=== PATIENT | female | born 1955 | race Caucasian/White ===

== ENCOUNTER → 2019-12-04 09:32 | Outpatient (BNVA) | payer BC, SELFPAY | PROVIDERS: Family Provider Nurse Practitioner Family; PCP Nurse Practitioner Family; Visit Provider Nurse Practitioner Family | DX: Z00.00 Encounter for general adult medical examination without abnormal findings (principal); E83.42 Hypomagnesemia; Z13.29 Encounter for screening for other suspected endocrine disorder; Z13.6 Encounter for screening for cardiovascular disorders | CPT/HCPCS: 80053; 80061; 83735; 84439; 84443 ==

== ENCOUNTER → 2020-01-07 09:32 | Outpatient (BNVA) | payer BC, SELFPAY | PROVIDERS: Family Provider Nurse Practitioner Family; PCP Nurse Practitioner Family; Visit Provider Nurse Practitioner Family | DX: R73.01 Impaired fasting glucose (principal); R30.0 Dysuria; R82.90 Unspecified abnormal findings in urine; R73.09 Other abnormal glucose | CPT/HCPCS: 36416; 81003; 82962; 83036; 87077; 87086; 87186 ==

== ENCOUNTER → 2020-04-07 08:51 | Outpatient (BNVA) | payer BC, SELFPAY | PROVIDERS: Family Provider Nurse Practitioner Family; PCP Nurse Practitioner Family; Visit Provider Nurse Practitioner Family | DX: R73.09 Other abnormal glucose (principal); E78.1 Pure hyperglyceridemia | CPT/HCPCS: 83036 ==

== ENCOUNTER → 2020-07-08 09:08 | Outpatient (BNVA) | payer BC, SELFPAY | PROVIDERS: Family Provider Nurse Practitioner Family; PCP Nurse Practitioner Family; Visit Provider Nurse Practitioner Family | DX: E78.1 Pure hyperglyceridemia (principal); Z68.42 Body mass index [BMI] 45.0-49.9, adult; L91.8 Other hypertrophic disorders of the skin; B37.2 Candidiasis of skin and nail | CPT/HCPCS: 80061 ==

== ENCOUNTER → 2020-11-17 09:14 | Outpatient (BNVA) | payer MEDICARE, SELFPAY | PROVIDERS: Family Provider Nurse Practitioner Family; PCP Nurse Practitioner Family; Visit Provider Family Medicine | DX: R05 Cough (principal); K21.00 Gastro-esophageal reflux disease with esophagitis, without bleeding | CPT/HCPCS: 85025 ==

== ENCOUNTER → 2021-04-20 00:01 | Outpatient (BNVA) | payer MEDICARE, SELFPAY | PROVIDERS: Family Provider Nurse Practitioner Family; PCP Nurse Practitioner Family; Visit Provider Nurse Practitioner Family | DX: R30.0 Dysuria (principal); R82.90 Unspecified abnormal findings in urine | CPT/HCPCS: 81003; 87077; 87086; 87184 ==

== ENCOUNTER → 2021-09-08 07:56 | Outpatient (BNVA) | payer MEDICARE, SELFPAY | PROVIDERS: Family Provider Nurse Practitioner Family; PCP Nurse Practitioner Family; Visit Provider Nurse Practitioner Family | DX: E78.1 Pure hyperglyceridemia (principal); E55.9 Vitamin D deficiency, unspecified | CPT/HCPCS: 80053; 80061; 82306; 83735; 84439; 84443; 85025 ==

== ENCOUNTER 2021-12-10 14:39 | Emergency (ER) | payer MEDICARE, SELFPAY ==
[2021-12-10 14:51] VITALS: BP 175/121; PULSE 102; RESP 18; TEMP 36.4; O2SAT 95
--- NOTE | 2021-12-10 15:01 | XRR_ITS ---
PROCEDURE INFORMATION: Exam: XR Chest Exam date and time: 12/10/2021 3:01 PM Age: 66 years old Clinical indication: Angina pectoris; Prior surgery; Patient HX: Double mastectomy, HX of breast cancer, chest pain and neck pain starting last night TECHNIQUE: Imaging protocol: XR of the chest. Views: 1 view. COMPARISON: No relevant prior studies available. FINDINGS: Lungs: Unremarkable. No consolidation. Pleural spaces: Unremarkable. No pleural effusion. No pneumothorax. Heart/Mediastinum: Unremarkable. No cardiomegaly. Bones/joints: Unremarkable. XR/XR chest 1V portable [id number] IMPRESSION: No acute findings.
[2021-12-10 16:02] VITALS: BP 148/96; PULSE 100; RESP 19; O2SAT 97
--- NOTE | 2021-12-10 16:03 | PC.NURSE ---
PATIENT PLACED ON CONTINUOUS BEDSIDE CARDIAC, O2 AND BP MONITOR
[2021-12-10 16:33] LABS: Basophils % 0.5 %; Eosinophils # 0.1 10^3/uL (0.0-0.8); Eosinophils % 1.3 %; Hematocrit 45.6 % (37.0-47.0); Hemoglobin 15.2 g/dL (11.5-15.3); Lymphocytes # 2.7 10^3/uL (0.8-4.8); Lymphocytes % 44.5 %; Mean Corpuscular HGB Conc 33.3 g/dL (30.0-36.0); Mean Corpuscular Volume 93.1 fl (81-99); Mean Platelet Volume 11.4 fL (7.4-10.4); Monocytes # 0.5 10^3/uL (0.2-0.9); Monocytes % 7.9 %; Neutrophils # 2.73 10^3/uL (1.8-7.7); Neutrophils % 45.3 %; Nucleated Red Blood Cells % 0 %; Platelet Count 208 10^3/cmm (130-400); Red Cell Distribution Width 11.8 % (12.1-15.1)
[2021-12-10 16:53] LABS: Troponin(5th) Baseline 8 ng/L (0-10)
[2021-12-10 16:54] LABS: Anion Gap 19.1 (5-19); Blood Urea Nitrogen 19 mg/dL (8-23); Calcium 9.7 mg/dL (8.5-10.5); Carbon Dioxide 24 mmol/L (22-29); Chloride 98 mmol/L (98-107); Glucose 123 mg/dL (65-115); Osmolality Calculated 288 mOsm/kg (285-295); Potassium 4.1 mmol/L (3.5-5.1); Sodium 137 mmol/L (136-145)
--- NOTE | 2021-12-10 17:01 | ECG_ITS ---
[facility] Test Date: 2021-12-10 Pat Name: Radha Sheldon Department: Room: Gender: Female Principal Research Economist: : 1955 Requested By: Khurram Nguyen Order Number: [id number] Reading MD: JULIA HODGES Measurements Intervals Triangle Rate: 95 P: 48 OK: 168 QRS: 24 QRSD: 98 T: 50 QT: 356 QTc: 449 Interpretive Statements SINUS RHYTHM POSSIBLE LEFT ATRIAL ENLARGEMENT [-0.1mV P-WAVE IN V1/V2] No previous ECG available for comparison Electronically Signed On 12-11-2021 17:47:08 COAL DIGGER by JULIA HODGES [id number]
[2021-12-10 17:05] VITALS: BP 154/81; PULSE 95; RESP 18; O2SAT 97
[2021-12-10 17:33] VITALS: BP 146/82; PULSE 97; RESP 24; O2SAT 97
--- NOTE | 2021-12-10 17:33 | W.ED.GENADLT ---
HPI - General Adult General: Chief complaint: Chest Pain Stated complaint: CHEST PREASURE Time Seen by Provider: 12/10/21 15:46 History of Present Illness: CC: Chest Pain HPI: This is a [66] yo patient hx of breast cancer s/p b/l mastectomy, knee replacement to the ED complaining of one episode of achy and burning chest pain lasting for a 15-20 minutes at home while patient was resting around 10pm. No additoinal episode. No associated with shortness of breath, chest pain or dyspnea on exertion. Pain not associated with vomiting or PO intake. Denies any recent sympathomimetic drug use. Patient denies any cough. Denies palpitations, dysphagia, diaphoresis, radiation of pain to bilateral arms, jaw. Denies F/N/V/D. Patient denies any recent immobility, surgery, unilateral leg swelling, or prior PE. Patient denies any orthopnea. Onset: 1 days ago Duration: ongoing for the last 1 day Location: home Severity: mild/moderate Associated symptoms: Reports chest pain; Deny dyspnea, nausea, rash, palpitations or vomiting Review of Systems Const: Denies: fever(s) or chills Eyes: Denies: change in vision ENMT: Denies: mouth pain Card: Reports: chest pain; Denies: palpitations Resp: Denies: dyspnea or non-productive cough GI: Denies: abdominal pain, nausea, vomiting or diarrhea : Denies: dysuria Musc: Denies: extremity pain Skin/Breast: Denies: rash or new lesions Neuro: Denies: weakness in extremities Psych: Reports: other (Normal mood) Angelo/Lymph: Denies: easy bruising PFS ED PFSH: Medical History History of breast cancer Surgical History History of bilateral mastectomy History of total knee replacement BOTH Social History Smoking and tobacco status: never smoked Alcohol intake: never Physical Exam Const: COMMON NORMALS: alert HENMT: COMMON NORMALS: atraumatic HEAD & SCALP: atraumatic MOUTH: moist mucous membranes not abnormal Eye: COMMON NORMALS: EOMs intact bilaterally and conjunctivae normal CONJUNCTIVA: Yes conjunctivae normal Neck/C-Spine: COMMON NORMALS: full ROM and supple Resp: COMMON NORMALS: normal respiratory effort and clear to auscultation bilaterally AUSCULTATION: clear to auscultation bilaterally Cardio: COMMON NORMALS: regular rate RATE: regular rate GI: COMMON NORMALS: Soft to palpation and non-tender PALPATION: Yes Soft to palpation Extremity: COMMON NORMALS: full ROM Neuro: SENSORIUM/ORIENTATION: Yes alert MOTOR EXAM: No Abnormal motor strength present and Other motor observations present (no focal motor deficits) Psych: COMMON NORMALS: speech normal SPEECH: Yes normal speech MOOD & AFFECT: Yes euthymic mood Course Vital Signs: Vital signs: Vital Signs Temperature 97.5 F L 12/10/21 14:51 Pulse Rate 87 12/10/21 18:26 Respiratory Rate 22 H 12/10/21 18:26 Blood Pressure 130/72 12/10/21 18:26 Pulse Oximetry 96 12/10/21 18:26 MDM - General Adult Medical Decision Making [66]yo patient w/ hx of prior breast cancer presenting to the ED with evaluation of one episode of chest pain at 10pm yesterday night. HDS, pulse 2+ radially bilaterally, no signs of fluid overload, AAOx3, neuro exam intact. Given History and Exam today I have no suspicion for ACS, Pneumothorax, Pneumonia, Pulmonary Embolus, Tamponade, Aortic Dissection or other emergent problems as a cause for this presentation. Workup: ECG x 2 , CXR, CBC, BMP, Troponinx 2, dimer Interventions: Aspirin Findings: ECG: No overt evidence of STEMI, hyperacute T waves, localizable STD or T wave inversions. No evidence of Brugada?s sign, delta wave, epsilon wave, significantly prolonged QTc, or malignant arrhythmia. No Q waves. Other Labs unremarkable for emergent problems. CXR: Without PTX, PNA, or widened mediastinum Last Stress Test: never Last Heart Catheterization: never Dimer wnl HEART Score of 3 (age - 2, EKG - non specific EKG changes) [7:35] On reassessment, the patient is HDS, no complaints of persistent chest pain in the ED after evaluation. ECG is non-ischemic. Troponin x 2 wnl. Workup today is unremarkable. Doubt ACS/PE or other emergent causes of chest pain since HEART score of 2. Troponin x 2 wnl. No suspicion for aortic dissection given no widened mediastinum, 2+ upper extremity pulses, or tearing pain. No suspicion for PE given no pleuritic chest pain, recent immobilization or surgery hemoptysis, or other VTE risk factors. EKG is non-ischemic. XR normal. I performed shared decision-making with patient regarding admission versus discharge today, and patient prefers to be discharged. I have discussed given patient's risk factors that she would better off admitted to the hospital. However, we do not do stress test on the weekend and she would have to wait until Monday. Upon hearing this, patient elects to go home and do the stress test on Monday and Monday. I explained the risks of leaving the hospital today including lethal arrythemia, NM, and even . Patient verbalizes understanding of these discussed risk and elect for the alternative of following up earlier next week for stress test on Monday or Monday and to see a communications department chairperson in clinic. Patient verbalizes understanding to return for any worsening symptoms including chest pain, dyspnea, fatigue, arm pain/jaw pain/back pain or any new or concerning issues. I have given patient follow up with our skilled nursing case manager to be seen by our outpatient Cardiology should patient have persistent symptom of chest pain. Patient aware of a call from our skilled nursing case manager to schedule for appointment(s) and verbalizes understanding of the importance of following up. Disposition: Discharge. Strict return precautions discussed with the patient with full understanding. Advised patient to follow up promptly with a communications department chairperson next week if the patient has persistent symptoms. Given return instructions for any crushing/tearing chest pain, focal weakness, syncope or any new or concerning issues. Lab Data : 12/10/21 16:05 12/10/21 16:05 Radiology Impressions Chest X-Ray 12/10/21 15:01 IMPRESSION: No acute findings. Laboratory Results WBC 6.0 10^3/uL (4.0-10.0) 12/10/21 16:05 RBC 4.90 10^6/uL (4.1-5.3) 12/10/21 16:05 Hgb 15.2 g/dL (11.5-15.3) 12/10/21 16:05 Hct 45.6 % (37.0-47.0) 12/10/21 16:05 MCV 93.1 fl (81-99) 12/10/21 16:05 MCH 31.0 pg (28.0-34.0) 12/10/21 16:05 MCHC 33.3 g/dL (30.0-36.0) 12/10/21 16:05 RDW 11.8 % (12.1-15.1) L 12/10/21 16:05 Plt Count 208 10^3/cmm (130-400) 12/10/21 16:05 MPV 11.4 fL (7.4-10.4) H 12/10/21 16:05 Neut % (Auto) 45.3 % 12/10/21 16:05 Lymph % (Auto) 44.5 % 12/10/21 16:05 Camp % (Auto) 7.9 % 12/10/21 16:05 Eos % (Auto) 1.3 % 12/10/21 16:05 Baso % (Auto) 0.5 % 12/10/21 16:05 Neut # (Auto) 2.73 10^3/uL (1.8-7.7) 12/10/21 16:05 Lymph # (Auto) 2.7 10^3/uL (0.8-4.8) 12/10/21 16:05 Camp # (Auto) 0.5 10^3/uL (0.2-0.9) 12/10/21 16:05 Eos # (Auto) 0.1 10^3/uL (0.0-0.8) 12/10/21 16:05 Baso # (Auto) 0.0 10^3/uL (0.0-0.1) 12/10/21 16:05 Nucleated RBC % (auto) 0 % 12/10/21 16:05 Nucleated RBCs # 0.0 /100WBC 12/10/21 16:05 D-Dimer 0.47 ug/mIFEU (0-0.59) 12/10/21 16:05 Sodium 137 mmol/L (136-145) 12/10/21 16:05 Potassium 4.1 mmol/L (3.5-5.1) 12/10/21 16:05 Chloride 98 mmol/L (98-107) 12/10/21 16:05 Carbon Dioxide 24 mmol/L (22-29) 12/10/21 16:05 Anion Gap 19.1 (5-19) H 12/10/21 16:05 BUN 19 mg/dL (8-23) 12/10/21 16:05 Creatinine 0.6 mg/dL (0.5-0.9) 12/10/21 16:05 GFR Calculation 100.0 mL/min (90-130) 12/10/21 16:05 Glucose 123 mg/dL (65-115) H 12/10/21 16:05 Calculated Osmolality 288 mOsm/kg (285-295) 12/10/21 16:05 Calcium 9.7 mg/dL (8.5-10.5) 12/10/21 16:05 Troponin T Baseline 8 ng/L (0-10) 12/10/21 16:05 Troponin T 120 Minute 6.41 ng/L (0-10) 12/10/21 18:28 Imaging Data Other Imaging: Radiologist's impression: [place] [address] XRay Report Signed Patient: Radha Sheldon Unit #: [id number] : 1955 Age/Sex: 66 / F ADM Date: 12/10/21 Loc: ER Room/Bed: Attending Dr: Ordering Provider/Ordering MD: Khurram Nguyen MD Date of Service: 12/10/21 Procedure(s): XR chest 1V portable [id number] Accession Number(s): [id number] Report Number: [id number] PROCEDURE INFORMATION: Exam: XR Chest Exam date and time: 12/10/2021 3:01 PM Age: 66 years old Clinical indication: Angina pectoris; Prior surgery; Patient HX: Double mastectomy, HX of breast cancer, chest pain and neck pain starting last night TECHNIQUE: Imaging protocol: XR of the chest. Views: 1 view. COMPARISON: No relevant prior studies available. FINDINGS: Lungs: Unremarkable. No consolidation. Pleural spaces: Unremarkable. No pleural effusion. No pneumothorax. Heart/Mediastinum: Unremarkable. No cardiomegaly. Bones/joints: Unremarkable. XR/XR chest 1V portable [id number] IMPRESSION: No acute findings. ? Dictated By: Francisco Javier Velazquez Signed By: Francisco Javier Velazquez Signed Date/Time: 12/10/21 1543 DD/ 1501 Discharge Plan Discharge Patient Disposition: Home Clinical Impression: Chest pain Condition: Stable Prescriptions: New acetaminophen 500 mg tablet 500 mg PO Q6H PRN (Reason: pain) 5 Days Qty: 20 0RF No Action cholecalciferol (vitamin D3) 2,000 unit tablet 2,000 unit PO QDAY 0RF magnesium oxide 500 mg capsule 500 mg PO QDAY 0RF ketotifen fumarate [Zaditor] 0.025 % (0.035 %) drops 1 drp ophthalmic (eye) Q12H Qty: 5 3RF coenzyme Q10 PO 0RF cetirizine [Zyrtec] 10 mg tablet 10 mg PO DAILY Qty: 30 11RF Discharge Orders: Discharge ED (Routine); Ordered 12/10/21 Ordered By: Khurram Nguyen Referrals: Tiki Sarabia, REVENUE STAMP CLERK [Primary Care Provider] - Discharge Diet: Advance as tolerated Discharge Activity: Increase activity as tolerated Patient Instructions: Chest Pain (ED) Activity Restrictions/Additional Instructions: Come back to the emergency room if your chest pain worsens, have any fever or chills, worsening shortness of breath, worsening exertional lightheadedness, or any new or concerning complaints. Coding Level of Care Code ED Industrial Engineering Technician for [place] Fwque Exam Comprehensive
[2021-12-10 18:26] VITALS: BP 130/72; PULSE 87; RESP 22; O2SAT 96
[2021-12-10 18:26] LABS: D Dimer 0.47 ug/mIFEU (0-0.59)
[2021-12-10 19:29] LABS: Troponin 5 2HR 6.41 ng/L (0-10)
[2021-12-10 19:45] VITALS: BP 128/68; PULSE 87; RESP 18; O2SAT 96
[2021-12-10 19:49] LABS: Troponin 5 2HR Delta -1.59 ABS# (0-10)
--- NOTE | 2021-12-13 12:54 | DCPLANNER ---
Addendum entered by Shelby Dean 01/07/22 10:50: Patient had a follow up appointment scheduled for 12.29.21 with [facility] - patient did attend appointment. Original Note: quality control manager had message to schedule a follow up appointment for patient with [facility]. quality control manager called [facility], spoke with Gabriela, gave clinic patients information. A follow up appointment was scheduled for Wednesday, December 29, 2021 at 10:[address] Desai. quality control manager called patient and gave patient the appointment information.
== END 2021-12-10 19:47 | disposition home or self-care (01) ==
PROVIDERS: Emergency Provider Emergency Medicine; PCP Nurse Practitioner Family
DX: R07.9 Chest pain, unspecified (principal); Z85.3 Personal history of malignant neoplasm of breast
CPT/HCPCS: 71045; 80048; 84484; 85025; 85378; 93005; 99284

== ENCOUNTER → 2022-05-12 10:03 | Outpatient (BNVA) | payer MEDICARE, SELFPAY | PROVIDERS: PCP Nurse Practitioner Family; Visit Provider Family Medicine | DX: M16.11 Unilateral primary osteoarthritis, right hip (principal); M25.551 Pain in right hip | CPT/HCPCS: 73502 ==

== ENCOUNTER → 2022-06-17 09:22 | Outpatient (BNVA) | payer MEDICARE, SELFPAY | PROVIDERS: PCP Nurse Practitioner Family; Visit Provider Nurse Practitioner Family | DX: R47.1 Dysarthria and anarthria (principal) | CPT/HCPCS: 81003 ==

== ENCOUNTER → 2022-08-24 08:41 | Outpatient (BNVA) | payer MEDICARE, SELFPAY | PROVIDERS: PCP Nurse Practitioner Family; Visit Provider Nurse Practitioner Family | DX: E78.1 Pure hyperglyceridemia (principal); E55.9 Vitamin D deficiency, unspecified; Z23 Encounter for immunization; Z00.00 Encounter for general adult medical examination without abnormal findings | CPT/HCPCS: 80053; 80061; 82306; 84443 ==

== ENCOUNTER → 2022-12-06 09:47 | Outpatient (BNVA) | payer MEDICARE, SELFPAY | PROVIDERS: PCP Nurse Practitioner Family; Visit Provider Nurse Practitioner Family | DX: Z12.4 Encounter for screening for malignant neoplasm of cervix (principal) | CPT/HCPCS: 88175 ==

== ENCOUNTER → 2023-02-28 10:23 | Outpatient (BNVA) | payer MEDICARE, SELFPAY | PROVIDERS: PCP Nurse Practitioner Family; Visit Provider Nurse Practitioner Family | DX: E78.1 Pure hyperglyceridemia (principal) | CPT/HCPCS: 80053; 80061 ==

== ENCOUNTER 2023-03-09 07:41 | Outpatient (CLI) | payer MEDICARE, SELFPAY ==
--- NOTE | 2023-03-09 08:00 | XR_ITS ---
WS: [id number] DEXA (DUAL ENERGY X-RAY ABSORPTIOMETRY) Bone mineral density was performed using a [employer] machine. HISTORY: Z78.0 - Asymptomatic menopausal state COMPARISON: None available. Lumbar spine BMD (L1-L4): 1.021 g/cm2 T score: -1.3 Z score: -0.9 Total hip BMD: Left: 1.216 g/cm2. T score: 1.7 Z score: 2.1 Right: 1.071 g/cm2. T score: 0.5 Z score: 1.0 10 year probability of a major osteoporotic fracture is 12.0%. XR/XR DEXA axial skeleton* 21293 IMPRESSION: OSTEOPENIA based upon the WHO classification for females.
== END 2023-03-09 07:42 | disposition home or self-care (01) ==
LOC: RAD 07:42
PROVIDERS: PCP Nurse Practitioner Family; Visit Provider Nurse Practitioner Family
DX: Z78.0 Asymptomatic menopausal state (principal); M85.80 Other specified disorders of bone density and structure, unspecified site
CPT/HCPCS: 77080

== ENCOUNTER → 2023-03-22 14:28 | Outpatient (BNVA) | payer MEDICARE, SELFPAY | PROVIDERS: PCP Nurse Practitioner Family; Visit Provider Surgery | DX: Z12.11 Encounter for screening for malignant neoplasm of colon (principal) | CPT/HCPCS: 99203 ==

== ENCOUNTER 2023-05-05 07:22 | Outpatient (CLI) | payer MEDICARE, SELFPAY ==
--- NOTE | 2023-05-05 07:30 | ECG_ITS ---
[facility] Test Date: 2023-05-05 Pat Name: Radha Sheldon Department: Room: Gender: Female Stone Trimmer: : 1955 Requested By: Tiki Sarabia Order Number: [id number] Juan Carlos MD: Kailyn Desai M.D. Interpretive Statements NAME OF STUDY: LEXISCAN SESTAMIBI STRESS TEST INDICATION: Pre op clearance PROCEDURE: At the baseline, the blood pressure was 146/84 mmHg with a heart rate of 83 bpm and oxygen saturation 96%. The electrocardiogram showed sinus rhythm, normal axis with normal ST and T's. The Lexiscan was infused over a period of 20 seconds. A total of 0.4 milligrams of Lexiscan was infused. The stress phase was continued for a total of 5 minutes. Heart rate at the end of the stress phase was 102 bpm, oxygen saturation 95% with a blood pressure 130/70 mmHg. The EKG at the peak infusion revealed sinus tachycardia with no significant ST-T wave changes. Sestamibi was injected 20 seconds after the Lexiscan infusion. Blood pressure at the end of the recovery phase was 125 over 69 mmHg with a heart rate of 98 beats per minute and saturation of 94%. CONCLUSION: 1. No significant EKG changes with the] LexiScan infusion. 2. No LexiScan induced chest pain or cardiac arrhythmia. 3. Normal blood pressure and heart rate response. 4. Sestamibi/sestamibi perfusion scan pending; see separate report. Attention: Preop clearance for hip Sx on May 10. Results need sent to [facility]. . Electronically Signed On 05-05-2023 13:58:36 CDT by Kailyn Desai M.D. [id number]
[2023-05-05 07:52] VITALS: BMI 39.4
--- NOTE | 2023-05-05 07:53 | NMCV_ITS ---
NM rebecca perf SPECT r/s* [id number] Radha Sheldon Age: 67 Gender: F : 1955 Exam Date: 05/05/2023 08:43 Ordering Phys: Tiki Sarabia NP Technologist: RAYMON Saucedo Exam Location: [facility] Indications: PRE OP CLEARANCE STRESS TEST [facility] IMAGE PROTOCOL Rest/Stress 1 Lexiscan Day Radiopharmaceutical Dose (mCi) Administration Site Administered by Rest: Tc-99m 10.6 IV RAYMON Saucedo Sestamibi Stress:Tc-99m 32.6 IV RAYMON Mantilla Sestamibi Rest: 05-May-2023 60 Discovery 630 Stress: 05-May-2023 30 Discovery 630 0.4mg Lexiscan. Images obtained in supine and prone position. SPECT RESULTS Technical Quality: Excellent Raw Data Analysis: Normal Image Corrections: No attenuation or motion correction applied Summed Stress Score: 2 Summed Rest Score: 0 Summed Difference Score: 2 PERFUSION FINDINGS Small sized reversible perfusion abnormality of mild severity of mid inferolateral wall on stress images. FUNCTIONAL RESULTS (calculated via Gated SPECT) Stress Image LV EF (%): 85 Stress EDV (mL):72 TID: 0.93 Stress ESV (mL):11 FUNCTIONAL FINDINGS: The left ventricle is normal in size. Transient Ischemia Dilatation of 0.93. The left ventricular ejection fraction is normal with a value of 85%. There is hyperdynamic left ventricular wall thickening. IMPRESSIONS 1. Very small sized reversible perfusion abnormality of mild severity of mid inferolateral cheng. This may represent very small area of ischemia in circumflex artery territory (SDS=2). 2. Overall left ventricular systolic function is normal without regional wall motion abnormalities, LVEF=85%. 3. EKG changes with Lexiscan infusion. Refer to separate report for details. Kailyn Desai MD (Electronically Signed) Final Date: 05 May 2023 14:01 S
[2023-05-05] MEDS: regadenoson 0.4 Mg/5 ml Syringe IVP (09:25)
[2023-05-05 09:42] VITALS: BP 125/69; PULSE 96
== END 2023-05-05 07:23 | disposition home or self-care (01) ==
LOC: CDL 07:24
PROVIDERS: PCP Nurse Practitioner Family; Visit Provider Nurse Practitioner Family
DX: Z01.818 Encounter for other preprocedural examination (principal); M16.10 Unilateral primary osteoarthritis, unspecified hip
CPT/HCPCS: 36415; 78452; 93017; 96374; A9500; J2785

== ENCOUNTER → 2023-09-06 11:10 | Outpatient (BNVA) | payer MEDICARE, SELFPAY | PROVIDERS: PCP Nurse Practitioner Family; Visit Provider Nurse Practitioner Family | DX: Z23 Encounter for immunization (principal); E78.1 Pure hyperglyceridemia; E55.9 Vitamin D deficiency, unspecified | CPT/HCPCS: 80053; 80061; 82306; 84443; 85025 ==

== ENCOUNTER → 2024-02-21 09:00 | Outpatient (BNVA) | payer MEDICARE, SELFPAY | PROVIDERS: PCP Nurse Practitioner Family; Visit Provider Nurse Practitioner Family | DX: E78.1 Pure hyperglyceridemia (principal); E55.9 Vitamin D deficiency, unspecified | CPT/HCPCS: 80053; 80061; 82306 ==

== ENCOUNTER → 2024-03-26 08:46 | Outpatient (BNVA) | payer MEDICARE, SELFPAY | PROVIDERS: PCP Nurse Practitioner Family; Visit Provider Nurse Practitioner Family | DX: R73.09 Other abnormal glucose (principal) | CPT/HCPCS: 83036 ==

== ENCOUNTER → 2024-06-17 09:50 | Outpatient (BNVA) | payer MEDICARE, SELFPAY | PROVIDERS: PCP Nurse Practitioner Family; Visit Provider Nurse Practitioner Family | DX: E55.9 Vitamin D deficiency, unspecified (principal); E78.1 Pure hyperglyceridemia; R73.09 Other abnormal glucose; E78.00 Pure hypercholesterolemia, unspecified; E53.8 Deficiency of other specified B group vitamins | CPT/HCPCS: 80053; 80061; 82306; 82607; 83036; 83735 ==

== ENCOUNTER → 2024-10-14 10:39 | Outpatient (BNVA) | payer MEDICARE, SELFPAY | PROVIDERS: PCP Nurse Practitioner Family; Visit Provider Family Medicine | DX: R35.0 Frequency of micturition (principal); R39.9 Unspecified symptoms and signs involving the genitourinary system; N39.0 Urinary tract infection, site not specified | CPT/HCPCS: 81000 ==

== ENCOUNTER → 2024-12-18 13:00 | Outpatient (BNVA) | payer MEDICARE, SELFPAY | PROVIDERS: PCP Nurse Practitioner Family; Visit Provider Nurse Practitioner Family | DX: E83.42 Hypomagnesemia (principal); E78.1 Pure hyperglyceridemia; R73.09 Other abnormal glucose | CPT/HCPCS: 80053; 80061; 82306; 83036; 83735 ==

== ENCOUNTER 2025-03-19 12:34 | Outpatient (CLI) | payer MEDICARE, SELFPAY | END 2025-03-19 12:35 | disposition home or self-care (01) | LOC: SLEEP 12:35 | PROVIDERS: PCP Nurse Practitioner Family; Visit Provider Nurse Practitioner Family | DX: G47.33 Obstructive sleep apnea (adult) (pediatric) (principal); G47.36 Sleep related hypoventilation in conditions classified elsewhere | CPT/HCPCS: G0399 ==

== ENCOUNTER → 2025-05-30 11:20 | Outpatient (BNVA) | payer MEDICARE, SELFPAY | PROVIDERS: PCP Nurse Practitioner Family; Visit Provider Nurse Practitioner Family | DX: R73.09 Other abnormal glucose (principal) | CPT/HCPCS: 83036 ==

== ENCOUNTER → 2025-06-25 09:34 | Outpatient (BNVA) | payer MEDICARE, SELFPAY | PROVIDERS: PCP Nurse Practitioner Family; Visit Provider Podiatrist Foot & Ankle Surgery | DX: M79.671 Pain in right foot (principal); M79.672 Pain in left foot; M76.821 Posterior tibial tendinitis, right leg; M76.822 Posterior tibial tendinitis, left leg; Q66.6 Other congenital valgus deformities of feet | CPT/HCPCS: 73630; 99203 ==

== ENCOUNTER → 2025-07-02 11:13 | Outpatient (BNVA) | payer MEDICARE, SELFPAY | PROVIDERS: PCP Nurse Practitioner Family; Visit Provider Nurse Practitioner Family | DX: R10.9 Unspecified abdominal pain (principal); R81 Glycosuria | CPT/HCPCS: 81000; 82962; 87086 ==

== ENCOUNTER → 2025-08-06 08:18 | Outpatient (BNVA) | payer MEDICARE, SELFPAY | PROVIDERS: PCP Nurse Practitioner Family; Visit Provider Podiatrist Foot & Ankle Surgery | DX: Q66.6 Other congenital valgus deformities of feet (principal); M79.604 Pain in right leg; M79.605 Pain in left leg; M76.821 Posterior tibial tendinitis, right leg; M76.822 Posterior tibial tendinitis, left leg | CPT/HCPCS: 99213 ==

== ENCOUNTER → 2025-08-12 08:39 | Outpatient (BNVA) | payer MEDICARE, SELFPAY | PROVIDERS: PCP Nurse Practitioner Family; Visit Provider Nurse Practitioner Family | DX: M54.50 Low back pain, unspecified (principal) | CPT/HCPCS: 81000 ==

== ENCOUNTER 2025-08-12 11:49 | Outpatient (CLI) | payer MEDICARE, SELFPAY | END 2025-08-12 11:50 | disposition home or self-care (01) | LOC: SPT 11:50 | PROVIDERS: PCP Nurse Practitioner Family; Visit Provider Podiatrist Foot & Ankle Surgery | DX: Z46.89 Encounter for fitting and adjustment of other specified devices (principal); M21.41 Flat foot [pes planus] (acquired), right foot; M21.42 Flat foot [pes planus] (acquired), left foot | CPT/HCPCS: L3030 ==

== ENCOUNTER → 2025-10-01 09:00 | Outpatient (BNVA) | payer MEDICARE, SELFPAY | PROVIDERS: PCP Nurse Practitioner Family; Visit Provider Nurse Practitioner Family | DX: E11.9 Type 2 diabetes mellitus without complications (principal) | CPT/HCPCS: 80053; 80061; 83036 ==